=== PATIENT | female | born 1960 | race Caucasian/White ===

== ENCOUNTER 2017-01-23 20:40 | Emergency (ER) | payer OTHER ==
[~2017-01-23] VITALS: Ht 167.6 cm; Wt 62.5 kg
[~2017-01-23 20:40] MED LIST: ALBU8.5H3; BECL8.7A5; ESTR1TAB15; FLUT16SP24; GABA300C; IBUP-1542 PO; LORA-52; OMEP20CA16 PO; OSLT75C PO; PRED20TA PO; UDMYL PO; VITA-212
[2017-01-23 20:44] VITALS: Ht 167.6 cm; Wt 62.5 kg
[2017-01-23] MEDS ORDERED: ALBUTEROL 0.083% (NEB) 2.5 MG/3 ML AMP HHN STA (22:21)
[2017-01-23] MEDS ORDERED: IPRATROPIUM (NEB) 0.5 MG/2.5 ML AMP HHN ONE (22:30)
[2017-01-23 22:38] LABS: URINE BLOOD (Dip) POC Trace-intact (NEGATIVE)
--- NOTE | 2017-01-23 23:41 | ERD ---
ER Documentation Chief Complaint Date/Time DATE: 01/23/17 TIME: 23:35 Chief Complaint cough x 3 days w/ wheezes, run out of albuterol puffs HPI 56-year-old female history of asthma complaining of cough with wheezing 3 days. Cough is nonproductive. Symptoms worse with exertion. She has run out albuterol inhaler, however she complains that inhaler has not helped. Patient also complaining of left-sided pelvic pain for last 4 days. Pain is constant, radiates to the back. Patient reports pelvic pain and back pain when she walks. Patient also has a history of lumbar surgery. She takes naproxen for her back pain, but he has not helped for the last 4 days.. Denies fever or chills. Denies vomiting or diarrhea. Denies vaginal bleeding. Denies dysuria. ROS All systems reviewed and are negative except as per history of present illness. Allergies Allergies: Coded Allergies: Penicillins (Verified Allergy, Unknown, 01/23/17) ibuprofen (Verified Allergy, Unknown, 01/23/17) morphine (Verified Allergy, Unknown, 01/23/17) PMhx/Soc History of Surgery: Yes (, LOWER BACK SX) Anesthesia Reaction: No Hx Neurological Disorder: No Hx Respiratory Disorders: Yes (ASTHMA) Hx Cardiac Disorders: No Hx Psychiatric Problems: No Hx Miscellaneous Medical Probl: No Hx Alcohol Use: No Hx Substance Use: No Hx Tobacco Use: No Smoking Status: Never smoker Physical Exam Vitals Vital Signs Date Time Temp Pulse Resp B/P Pulse Ox O2 Delivery O2 Flow Rate FiO2 01/23/17 22:45 75 28 100 21 01/23/17 20:44 99.1 92 20 134/65 99 Physical Exam General: Well-developed, well-nourished, conscious and coherent, in no distress Skin: Warm and dry without rash, good texture and turgor Head: Normocephalic without evidence of trauma Eyes: Sclera and conjunctivae normal; pupils equal, round, and reactive to light; extraocular movements are intact Ears: Canals are patent. Tympanic membranes are clear Nose/Face: Is a mucosa erythematous and swollen. Mouth/throat: Mucous membranes are moist. Posterior pharynx clear without erythema or exudates Neck: Supple without meningismus or adenopathy. Carotids are equal. Trachea midline. No bruits or JVD Chest: Normal AP diameter. Good expansion without retractions. Nontender. Lungs are clear to auscultate bilaterally with good tidal volume. Deep breathing induces nonproductive cough. Heart: Regular rate and rhythm. No murmur, rub, or gallops heard Abdomen: Soft and nontender without masses, guarding, or rebound. Bowel sounds are active. No hepatosplenomegaly Back: Bar spine tenderness, no CVA tenderness Pelvis: Pelvic tenderness. Extremities: Full range of motion. Good strength bilaterally. No clubbing, cyanosis, or edema. Peripheral pulses are intact. Sensation intact Neuro: Alert and oriented 4, GCS 15. Cranial nerves grossly intact. Motor and sensory exams nonfocal. Moves all extremities. Speech clear. Gait normal Results 24 hrs Laboratory Tests Test 01/23/17 22:45 Bedside Urine pH (LAB) 6.0 Bedside Urine Protein (LAB) Negative Bedside Urine Glucose (UA) Negative Bedside Urine Ketones (LAB) Negative Bedside Urine Blood Trace-intact Bedside Urine Nitrite (LAB) Negative Bedside Urine Leukocyte Esterase (L 1+ Current Medications Medications (Trade) Dose Ordered Sig/Kash Route PRN Reason Start Time Stop Time Status Last Admin Dose Admin Albuterol (Proventil 0.083% (Neb)) 2.5 mg ONCE STAT HHN 01/23/17 22:21 01/23/17 22:23 DC 01/23/17 22:45 Ipratropium [place] (Atrovent 0.02% (Neb)) 0.5 mg ONCE ONCE HHN 01/23/17 22:30 01/23/17 22:31 DC 01/23/17 22:45 PROCEDURE: US Non-OB Pelvis. CLINICAL INDICATION: Left pelvic pain. TECHNIQUE: Multiple sonographic images of the pelvis were obtained utilizing a transabdominal technique. The images were reviewed on a PACS workstation. COMPARISON: None. FINDINGS: The uterus is visualized and measures 6.6 x 2.4 x 3.9 cm. The endometrial echo complex is normal and measures 2 mm. The right ovary measures 2.6 x 1.2 x 1.8 cm. The left ovary measures 2.4 x 1.3 x 1.6 cm. Blood flow is demonstrated to both ovaries. No adnexal masses are noted. There is no evidence of free fluid. IMPRESSION: 1. Unremarkable pelvic ultrasound. RPTAT: HTAR .Alexander Grossman MD, MD Date Time Electronically viewed and signed by .Alexander Grossman MD, MD on 01/24/2017 00:18 .R/ CC: GUNJAN MCKENZIE [employer] OFFICER Procedures/MDM 56-year-old female with history of asthma is complaining of cough and shortness of breath on exertion 3 days. Given nebulizer treatment with albuterol and Atrovent in the ED. Patient reports improvement breathing after treatment. Patient's lungs are clear to auscultate, O2 sats 99%, she is afebrile, I have low suspicion for pneumonia. I suspect the patient has a viral bronchitis. Patient will be given prescription of albuterol, Robitussin, and saline nasal spray. Also complaining of pelvic pain. Pelvic ultrasound was unremarkable. Urine dip showed 1+ leukocytes and trace hemoglobin. I suspect the patient has the UTI. I doubt pyelonephritis. I will treat her with Macrobid. Patient appears well, stable for discharge and outpatient management. Medical decision making shared with patient and family. Education provided to patient and family. Patient and family expressed understanding of the plan. Medications on discharge: Macrobid, albuterol HFA, Robitussin, saline nasal spray. Follow-up: Primary care provider in 2-3 days or return to ED if worse. Disclaimer: Inadvertent spelling and grammatical errors are likely due to EHR/ dictation software use and do not reflect on the overall quality of patient care. Also, please note that the electronic time recorded on this note does not necessarily reflect the actual time of the patient encounter. Departure Diagnosis: Primary Impression: Viral bronchitis Additional Impression: UTI (urinary tract infection) Urinary tract infection type: acute cystitis Hematuria presence: with hematuria Qualified Code: N30.01 - Acute cystitis with hematuria Condition: Stable GUNJAN MCKENZIE NP Jan 23, 2017 23:41
--- NOTE | 2017-01-24 00:18 | RADRPT ---
PROCEDURE: US Non-OB Pelvis. CLINICAL INDICATION: Left pelvic pain. TECHNIQUE: Multiple sonographic images of the pelvis were obtained utilizing a transabdominal tech nique. The images were reviewed on a PACS workstation. COMPARISON: None. FINDINGS: The uterus is visualized and measures 6.6 x 2.4 x 3.9 cm. The endometrial echo complex is normal and measures 2 mm. The right ovary measures 2.6 x 1.2 x 1.8 cm. The left ovary measures 2.4 x 1.3 x 1.6 cm. Blood flow is demonstrated to both ovaries. No adnexal masses are noted. There is no evidence of free fluid. IMPRESSION: 1. Unremarkable pelvic ultrasound. RPTAT: HTAR .Alexander Grossman MD, Date Time Electronically viewed and signed by .Alexander Grossman MD, MD on 01/24/2017 00:18 .R/
[2017-01-24] MEDS ORDERED: NITR-58 PO (00:41)
[2017-01-24] MEDS ORDERED: ALBU18HF INHALATION (00:41)
[2017-01-24] MEDS ORDERED: SODI126M NASAL (00:41)
[2017-01-24] MEDS ORDERED: GUAI-637 PO (00:41)
[2017-01-24 00:57] VITALS: BP 117/54; PULSE 84; RESP 18; TEMP 97.8
== END 2017-01-24 00:58 | disposition home or self-care (01) ==
LOC: FTE 20:40 → MERGE 20:40 → FTE 01-24 00:58
DX: B34.9 Viral infection, unspecified (principal); N30.01 Acute cystitis with hematuria
CPT/HCPCS: 76856; 81003; 94664; Z7502; Z7610

== ENCOUNTER 2018-10-26 21:20 | Emergency (ER) | payer OTHER ==
[~2018-10-26] VITALS: Ht 162.6 cm; Wt 64.4 kg
[~2018-10-26 21:20] MED LIST changes: +ALBU18HF INHALATION; -ALBU8.5H3; +ALBU8.5H8; +GUAI-637 PO; +NITR-58 PO; +OSEL75CA23 PO; -OSLT75C PO; +SODI126M NASAL
[2018-10-26 21:32] VITALS: Ht 162.6 cm; Wt 64.4 kg
[2018-10-26] MEDS ORDERED: ALBUTEROL 0.083% (NEB) 2.5 MG/3 ML AMP NEB STA (22:39)
[2018-10-26] MEDS ORDERED: METHYLPREDNISOLONE 125 MG INJ IM STA (22:39)
[2018-10-26] MEDS ORDERED: IPRATROPIUM (NEB) 0.5 MG/2.5 ML AMP NEB STA (22:39)
--- NOTE | 2018-10-26 22:44 | ERD ---
ER Documentation Chief Complaint Chief Complaint cough x 2 days HPI Patient is a 58 years old female with past medical history of asthma presenting to the clinic for cough, wheezing, coryza, and epiphora X 2 days. Patient reports difficulty breathing and symptoms are very similar to asthma attack. Patient admits to taking her inhaler and breathing treatment without resolution of symptoms. Patient denies fever, chills, night sweats. Patient admits to chest pain only with coughing. ROS All systems reviewed and are negative except as per history of present illness. Medications Home Meds Active Scripts Sodium Chloride (Saline Nasal Mist) 126 Ml Mist, 2 SPRAY NASAL Q2H PRN for NASAL CONGESTION, #1 BOTTLE Prov:GUNJAN MCKENZIE NP 01/24/17 Guaifenesin* (Robitussin*) 100 Mg/5 Ml Syrup, 200 MG PO Q4H PRN for COUGH, #120 ML Prov:GUNJAN MCKENZIE. JOHNATHON 01/24/17 Albuterol Sulfate* (Ventolin HFA*) 18 Gm Hfa.aer.ad, 2 PUFF INHALATION Q4H, #1 INHALER Prov:GUNJAN MCKENZIE. JOHNATHON 01/24/17 Nitrofurantoin Monohyd Macrocr* (Macrobid*) 100 Mg Capsr, 100 MG PO BID for 14 Days, CAP Prov:GUNJAN MCKENZIE NP 01/24/17 Ibuprofen* (Motrin*) 600 Mg Tab, 600 MG PO Q6, #20 TAB Prov:ADRIANNA MICHELE PA-C 09/22/15 Prednisone* (Prednisone*) 20 Mg Tab, 40 MG PO DAILY for 4 Days, TAB Prov:ADRIANNA MICHELE PA-C 07/31/15 Oseltamivir Phosphate* (Tamiflu*) 75 Mg Capsule, 75 MG PO BID for 5 Days, CAP Prov:ADRIANNA MICHELE PA-C 07/31/15 Omeprazole* (Omeprazole*) 20 Mg Capsule.dr, 20 MG PO DAILY, #30 CAP Prov:SUZANNE JOHNSON NP 06/08/15 Magaldrate/Simethicone* (Mag-Al Plus Suspension*) 30 Ml Oral.susp, 30 ML PO Q6H PRN for GASTROINTESTINAL UPSET, #120 ML Prov:SUZANNE JOHNSON NP 06/08/15 Prednisone* (Prednisone*) 20 Mg Tab, 60 MG PO DAILY for 4 Days, TAB Prov:CHAPITO KNIGHT [employer]. [employer] CUSTODIAN 06/01/15 Reported Medications Vitamin E Acetate (Vitamin E) 400 Unit Capsule 03/04/12 Albuterol Sulfate* (Proair HFA*) 8.5 Gm Hfa.aer.ad 03/04/12 Beclomethasone Dip* (Qvar 80*) 7.3 Gm In[place] 03/04/12 Fluticasone Propionate* (Flonase* Nasal) 16 Gm [place].susp 03/04/12 Estrogen,Conj-Medroxyprogest Acet (Prempro) 1 Tab Tablet 03/04/12 Loratadine (Alavert) 10 Mg Tablet 03/04/12 Gabapentin* (Neurontin*) 300 Mg Capsule 03/04/12 Allergies Allergies: Coded Allergies: Penicillins (Verified Allergy, Unknown, RASH, 03/04/12) amoxicillin (Unverified Allergy, Unknown, 06/01/15) codeine (Verified Allergy, Unknown, DIFFICULTY BREATHING, 03/04/12) ibuprofen (Verified Allergy, Unknown, 01/25/17) morphine (Verified Allergy, Unknown, DIFFICULTY BREATHING, 03/04/12) PMhx/Soc History of Surgery: Yes (, LOWER BACK SX) Anesthesia Reaction: No Hx Neurological Disorder: No Hx Respiratory Disorders: Yes (ASTHMA) Hx Cardiac Disorders: No Hx Psychiatric Problems: No Hx Miscellaneous Medical Probl: No Hx Alcohol Use: No Hx Substance Use: No Hx Tobacco Use: No Smoking Status: Never smoker FmHx Family History: No diabetes, No coronary disease, No other Physical Exam Vitals Vital Signs Date Temp Pulse Resp B/P (MAP) Pulse Ox O2 O2 Flow FiO2 Time Delivery Rate 10/26/18 85 20 98 21 22:56 10/26/18 99.8 90 18 119/58 98 21:32 (78) Physical Exam Const: No acute distress Head: Atraumatic Eyes: Normal Conjunctiva ENT: Normal External Ears, Nose and Mouth. Neck: Full range of motion. No meningismus. Resp: Clear to auscultation bilaterally. No rales, rhonchi, wheezing Cardio: Regular rate and rhythm, no murmurs Neur: Awake and alert Psych: Normal Mood and Affect Results 24 hrs Current Medications Medications Dose Sig/Kash Start Time Status Last (Trade) Ordered Route PRN Stop Time Admin Dose Reason Admin Albuterol 2.5 mg ONCE STAT 10/26/18 DC 10/26/18 (Proventil NEB 22:39 10/26/18 22:56 0.083% (Neb)) 22:41 Ipratropium 1.5 mg ONCE STAT 10/26/18 DC [place] NEB 22:39 10/26/18 (Atrovent 22:53 0.02% (Neb)) 125 mg ONCE STAT 10/26/18 DC 10/26/18 Methylprednis IM 22:39 10/26/18 23:00 olone Sodium 22:41 Succinate (Solu-Medrol) Ipratropium 0.5 mg ONCE ONCE 10/26/18 DC 10/26/18 [place] HHN 23:00 10/26/18 22:56 (Atrovent 23:01 0.02% (Neb)) Procedures/MDM Patient was seen and evaluated for cough. Chest x-ray revealed No evidence for acute intrathoracic pathology. Patient was given Solu-Medrol 125 mg and started on nebulizer treatment with significant improvement of symptoms. Patient is stable and ready for discharge. Follow-up with PCP. Patient will be discharged with Medrol Dosepak and advised to continue using inhaler and nebulizer at home. Departure Diagnosis: Primary Impression: Cough Condition: Stable Patient Instructions: Cough, Chronic, Uncertain Cause, (Adult) Referrals: [facility] Additional Instructions: Paciente aconseja volver a Departamento de urgencias inmediatamente para sntomas nuevos o que empeoran . Paciente aconseja posteriores con el PCP en 2-3 benites . Paciente verbaliza la comprehensin y est de acuerdo con el tratamiento y el curso de accin. Si el paciente no tiene ninguna de atencin primaria pueden seguir con [facility] [id number] [place] [address] o [facility] + [address] [id number] NAOMI ARAUJO PA-C Oct 26, 2018 22:44
[2018-10-26] MEDS ORDERED: IPRATROPIUM (NEB) 0.5 MG/2.5 ML AMP HHN ONE (23:00)
[2018-10-27] MEDS ORDERED: MED4DP PO (01:07)
[2018-10-27 01:36] VITALS: BP 115/56; PULSE 82; RESP 18
== END 2018-10-27 01:37 | disposition home or self-care (01) ==
LOC: FTE 21:20
DX: R05 Cough (principal); J45.909 Unspecified asthma, uncomplicated
CPT/HCPCS: 71045; 94664; 96372; J2930; Z7502; Z7610